=== PATIENT | male | born 1985 | race Caucasian/White ===

== ENCOUNTER 2020-05-20 17:37 | Observation (INO) | payer OTHER ==
[~2020-05-20] VITALS: Ht 177.8 cm; Wt 99.8 kg
[2020-05-20 17:40] VITALS: BP_SYST 156
--- NOTE | 2020-05-20 17:47 | NUR ---
Patient triaged and placed in waiting room. VSS and patient appears in no acute distress at this time. Awaiting available bed, and MD notified of need for MSE.
[2020-05-20 18:22] LABS: BASOPHILS % (AUTO) 0.5 % (0.0-2.0); EOSINOPHILS # (AUTO) 0.2 K/uL (0.0-0.4); EOSINOPHILS % (AUTO) 2.8 % (0.0-4.0); HEMOGLOBIN 15.5 g/dL (14.0-18.0); LYMPHOCYTES # (AUTO) 2.5 K/uL (1.0-5.5); LYMPHOCYTES % (AUTO) 43.8 % (20.5-51.5); MEAN CORPUSCULAR HEMOGLOBIN 30 pg (27-31); MEAN CORPUSCULAR HGB CONC 33 % (32-36); MEAN CORPUSCULAR VOLUME 90 fL (79.0-98.0); MONOCYTES # (AUTO) 0.4 K/uL (0.0-1.0); MONOCYTES % (AUTO) 6.3 % (1.7-9.3); NEUTROPHILS # (AUTO) 2.7 K/uL (1.8-7.7); NEUTROPHILS % (AUTO) 46.6 % (40.0-70.0); PLATELET COUNT (AUTO) 200 K/uL (130-430); RED CELL DISTRIBUTION WIDTH 12.3 % (9.0-15.0); WHITE BLOOD COUNT (AUTO) 5.7 K/uL (4.8-10.8)
[2020-05-20 18:33] LABS: CALCIUM 9.6 mg/dL (8.4-11.0); CREATININE 1.22 mg/dL (0.55-1.30); POTASSIUM 3.7 mmol/L (3.5-5.1)
[2020-05-20 18:42] LABS: TOTAL BILIRUBIN 0.6 mg/dL (0.0-1.0)
--- NOTE | 2020-05-20 19:41 | NUR ---
Patient to ER bed 08 to gown for evaluation. Side rails up. Report given to REAGAN [facility].
--- NOTE | 2020-05-20 19:41 | NUR ---
ER at bedside examining patient.
--- NOTE | 2020-05-20 19:42 | NUR ---
Pt brought by self, A&Ox4, pt presents to ER with chest pain 4/10 and abnormal EKG today , pt denies SOB , skin pink and warm, cap refill <3, VSS, respirations even and unlabored, afebrile
[2020-05-20 21:14] LABS: BARBITURATE, URINE NEGATIVE (NEG <=200); BENZODIAZEPINE, URINE NEGATIVE (NEG <=150); CANNABINOID, URINE NEGATIVE (NEG <=50); COCAINE, URINE NEGATIVE (NEG <=150); METHAMPHETAMINES SCREEN,URINE NEGATIVE (NEG <=500); OPIATE, URINE NEGATIVE (NEG <=100); PHENCYCLIDINE SCREEN,URINE NEGATIVE (NEG <=25); UR TRICYCLIC ANTIDEPRESSANTS NEGATIVE (NEG <=300); URINE AMPHETAMINE NEGATIVE (NEG <=500); URINE METHADONE NEGATIVE (NEG <=200); URINE OXYCODONE SCREEN NEGATIVE (NEG <=100); URINE PROPOXYPHENE SCREEN NEGATIVE (NEG <=300)
--- NOTE | 2020-05-20 23:31 | NUR ---
Pt A&Ox4, VSS, respirations even and unlabored, cap refill <3
--- NOTE | 2020-05-21 01:04 | NUR ---
Patient will be admitted to care of Dr Sanders . Admitted to Tele unit. Will go to room 116A . Belongings list completed. Complete and up to date summary report printed. SBAR report to be given at bedside with opportunity for questions.
--- NOTE | 2020-05-21 01:05 | NUR ---
ADMISSION NOTE Received patient from ER via gurney. Patient admitted with diagnosis of CHEST PAIN. Patient is awake, alert, oriented X4. Patient oriented to hospital room, call light, toileting, pain management and safety-teach back done. Personal belongings checked and Belongings List documented. Bed locked in lowest position with call light within reach.
[2020-05-21 01:39] VITALS: BP_SYST 130
--- NOTE | 2020-05-21 03:30 | NUR ---
RN ROUNDS PATIENT ASLEEP IN BED, RESTING COMFORTABLY WITH NO SIGNS OF PAIN OR DISTRESS NOTED. WILL CONTINUE TO MONITOR.
--- NOTE | 2020-05-21 05:05 | NUR ---
CONSULTATION PAGED/CALLED Reason for Consultation: CHEST PAIN Person Who was Notified: SUSAN Consulting Physician: [employer] Specialty: Ordering Physician:
[2020-05-21 06:44] LABS: BASOPHILS % (AUTO) 0.2 % (0.0-2.0); EOSINOPHILS # (AUTO) 0.2 K/uL (0.0-0.4); EOSINOPHILS % (AUTO) 2.9 % (0.0-4.0); HEMATOCRIT 46.6 % (36-54); HEMOGLOBIN 15.4 g/dL (14.0-18.0); LYMPHOCYTES # (AUTO) 1.9 K/uL (1.0-5.5); LYMPHOCYTES % (AUTO) 35.1 % (20.5-51.5); MEAN CORPUSCULAR HEMOGLOBIN 30 pg (27-31); MEAN CORPUSCULAR HGB CONC 33 % (32-36); MEAN CORPUSCULAR VOLUME 90 fL (79.0-98.0); MONOCYTES # (AUTO) 0.4 K/uL (0.0-1.0); MONOCYTES % (AUTO) 7.9 % (1.7-9.3); NEUTROPHILS # (AUTO) 2.9 K/uL (1.8-7.7); NEUTROPHILS % (AUTO) 53.9 % (40.0-70.0); PLATELET COUNT (AUTO) 183 K/uL (130-430); RED BLOOD CELL COUNT(AUTO) 5.16 MIL/uL (4.2-6.2); RED CELL DISTRIBUTION WIDTH 12.6 % (9.0-15.0); WHITE BLOOD COUNT (AUTO) 5.4 K/uL (4.8-10.8)
--- NOTE | 2020-05-21 06:45 | NUR ---
CLOSING NOTE PATIENT ASLEEP IN BED WITH NO SIGNS OF ACUTE DISTRESS OR CHEST PAIN NOTED. RESPIRATIONS EVEN AND UNLABORED ON ROOM AIR. BED LOCKED IN LOWEST POSITION WITH CALL LIGHT IN REACH. ALL PATIENT CARE NEEDS MET THROUGHOUT SHIFT. PATIENT STABLE. WILL CONTINUE TO MONITOR UNTIL ENDORSED TO AM NURSE.
[2020-05-21 07:35] LABS: CALCIUM 8.8 mg/dL (8.4-11.0); CREATININE 0.99 mg/dL (0.55-1.30); TOTAL BILIRUBIN 1.6 mg/dL (0.0-1.0)
[2020-05-21 07:36] LABS: ALBUMIN 3.6 g/dL (3.4-4.8)
--- NOTE | 2020-05-21 08:10 | NUR ---
AM ROUNDS: PATIENT SLEEPING DURING ROUNDS. RECEIVED REPORT FROM NIGHT NURSE MARISELA. IV SALINE LOCK AT LEFT WRIST,DRESSING CLEAN AND DRY. NOT IN ANY DISTRESS.
[2020-05-21 08:56] VITALS: BP_SYST 123
[2020-05-21] MEDS ORDERED: ENOXAPARIN SODIUM 40 MG/0.4 ML SYRINGE SUBCUT SCH (09:00)
[2020-05-21] MEDS ORDERED: ASPIRIN 325 MG TABLET PO SCH (09:00)
[2020-05-21 12:17] VITALS: BP_SYST 126
--- NOTE | 2020-05-21 12:18 | NUR ---
LUNCH: PATIENT HAVING LUNCH DURING ROUNDS. DENIES ANY PAIN. NO PROBLEM.
--- NOTE | 2020-05-21 14:30 | NUR ---
RN ROUNDS: PATIENT ON THE BED RESTING. DENIES ANY CHEST PAIN.
--- NOTE | 2020-05-21 15:20 | NUR ---
DC ORDER: DISCHARGE HOME BY ORDER OF DR REBOLLAR.PATIENT INFORMED.
[2020-05-21 15:42] VITALS: BP_SYST 120
[2020-05-21 15:51] VITALS: BP_SYST 120
== END 2020-05-21 17:00 | disposition home or self-care (01) ==
LOC: SED 17:37 → STU 20:43 → INTOOBSV 20:43 → STU 05-21 00:44
PROVIDERS: ADMIT Internal Medicine Hospice and Palliative Medicine; ATTEND Internal Medicine Hospice and Palliative Medicine
DX: R07.89 Other chest pain (principal); I10 Essential (primary) hypertension; I25.10 Atherosclerotic heart disease of native coronary artery without angina pectoris
CPT/HCPCS: 36415 ×2; 71045; 80053 ×2; 80061; 80307; 84484 ×2; 85025 ×2; 85379; 93005 ×2; 93306; 96372; 99285; G0378; J1650